=== PATIENT | female | born 1950 | race Caucasian/White ===

== ENCOUNTER 2020-11-01 15:21 | Emergency (ER) | payer MEDICARE, OTHER ==
--- NOTE | 2020-11-01 17:08 | EDM.PDOC ---
ED HPI GENERAL MEDICAL PROBLEM - General Chief Complaint: Gastrointestinal Problem Stated Complaint: RECTACL BLEEDING Time Seen by Provider: 11/01/20 16:49 Source of Information: Reports: Patient, RN Notes Reviewed History Limitations: Reports: No Limitations - History of Present Illness INITIAL COMMENTS - FREE TEXT/NARRATIVE: 70-year-old female presents emergency department today with bright red blood per rectum she does have a loose stool while in the emergency department which is consistent with bright red blood, she has no other symptomology she did have a hard stool a couple days ago she is traveling from out of [facility]. Colonoscopy 2 years ago with 1 polyp removed Abdominal Pain Score (Numeric/FACES): 4 - Related Data Allergies Allergy/AdvReac Type Severity Reaction Status Date / Time Sulfa (Sulfonamide Allergy Rash Verified 11/01/20 16:39 Antibiotics) Home Meds: Home Meds Calcium Carbonate [Calcium] 500 mg PO BID 11/01/20 [History] Cholecalciferol (Vitamin D3) [Vitamin D] 1 tab PO DAILY 11/01/20 [History] L.acidoph,Paracasei, B.lactis [Probiotic] 1 each PO TID 11/01/20 [History] Losartan [Cozaar] 100 mg PO DAILY 11/01/20 [History] Lutein/Min/Vit C/Vit E Acetate [Ocuvite Lutein] 1 tab PO DAILY 11/01/20 [History] Magnesium 250 mg PO DAILY 11/01/20 [History] Past Medical History HEENT History: Reports: Impaired Vision Cardiovascular History: Reports: Hypertension - Past Surgical History GI Surgical History: Reports: Small Bowel Female Surgical History: Reports: D&C, Hysterectomy Social & Family History - Tobacco Use Tobacco Use Status *Q: Never Tobacco User ED ROS GENERAL - Review of Systems Review Of Systems: See Below Constitutional: Reports: No Symptoms Respiratory: Reports: No Symptoms Cardiovascular: Reports: No Symptoms GI/Abdominal: Reports: Bloody Stool ED EXAM, GI/ABD - Physical Exam Exam: See Below Exam Limited By: No Limitations General Appearance: Alert, WD/WN, No Apparent Distress Respiratory/Chest: No Respiratory Distress GI/Abdominal Exam: Soft, Non-Tender Rectal (Female) Exam: Normal Exam, Hemorrhoids. No: Bloody Stool, Rectal Fissure, Tenderness Course - Vital Signs Last Recorded V/S: Last Vital Signs Temp 97.0 F 11/01/20 16:47 Pulse 56 L 11/01/20 16:47 Resp 16 11/01/20 16:47 BP 165/75 H 11/01/20 16:47 Pulse Ox 100 11/01/20 16:47 - Orders/Labs/Meds Labs: Laboratory Tests 11/01/20 Range/Units 17:21 Hgb 12.7 (12.0-15.0) g/dL Departure - Departure Time of Disposition: 18:16 Disposition: Home, Self-Care 01 Condition: Fair Clinical Impression: Blood per rectum - Discharge Information Instructions: Rectal Bleeding, [id number] Referrals: ANNE CASTRO MD [Other] Forms: ED Department Discharge Additional Instructions: Please report for your colonoscopy on call return to the emergency department worsening of symptoms Sepsis Event Note (ED) - Evaluation Sepsis Screening Result: No Definite Risk - Focused Exam Vital Signs: Vital Signs Temp Pulse Resp BP Pulse Ox 11/01/20 16:47 97.0 F 56 L 16 165/75 H 100 11/01/20 16:33 97.0 F 56 L 16 165/75 H 100 - Assessment/Plan Plan: Assessment Acuity = acute Site and laterality = bright red blood per rectum Etiology = unknown Manifestations = none Location of injury = Home Lab values = hemoglobin 12.7 Plan Call discussed case with Dr. Sweet at 1800 he agreed plan for colonoscopy in 2 days charge nurse is setting up her with the prep at this time which she will do tomorrow. This note was dictated using [employer] voice recognition software please call with any questions on syntax or grammar.
== END 2020-11-01 18:41 | disposition home or self-care (01) ==
LOC: JP.ED 15:21
DX: K62.5 Hemorrhage of anus and rectum (principal); I10 Essential (primary) hypertension; Z88.2 Allergy status to sulfonamides; Z79.899 Other long term (current) drug therapy
CPT/HCPCS: 36415; 85018; 99283

== ENCOUNTER 2020-11-03 06:58 | Day surgery (SDC) | payer MEDICARE, OTHER ==
[2020-11-03] MEDS ORDERED: Dextrose 5%-Lactated Ringers 1,000 ML IV SCH (08:00)
[2020-11-03] MEDS ORDERED: Midazolam 1 MG/ML 2 ML SDV ONE (09:02)
[2020-11-03] MEDS ORDERED: Propofol 200 MG/20 ML SDV ONE (09:02)
[2020-11-03] MEDS ORDERED: fentaNYL 100 MCG/2 ML SDV ONE (09:02)
--- NOTE | 2020-11-09 16:28 | OR ---
DATE OF PROCEDURE: 11/03/2020 SURGEON: Edmar Sweet MD PREOPERATIVE DIAGNOSIS: Recent episodes of blood per rectum. POSTOPERATIVE DIAGNOSIS: Diffuse colitis with rectal sparing. PROCEDURE PERFORMED: Flexible colonoscopy with: 1. Multiple colonic biopsies ([id number]). 2. Collection of stool for microbiologic workup ([id number]). ANESTHESIA: IV sedation. INDICATION FOR PROCEDURE: A 70-year-old female presenting with some rectal bleeding. The plan is to proceed with a colonoscopy with biopsies and/or polypectomy as indicated. Potential risks including bleeding and perforation were discussed, and the patient wishes to proceed. DETAILS OF PROCEDURE: The patient was taken to the operating room and placed in a left lateral decubitus position. IV sedation was administered after which the initial digital rectal exam was performed and was unremarkable. No blood or bleeding was initially seen. As one passed into the rectum, retroflexion revealed uncomplicated hemorrhoidal columns. At more or less the junction of the rectum and sigmoid colon, there began a reddened area of the colonic mucosa. This became very intense as one progressed into the descending colon, splenic flexure, and distal transverse colon. As one passed more proximally in the transverse colon and into the right colon, the redness became quite a bit less. In the areas of intense inflammation, there was purulent material on the surface of the colon and some scattered ulcerations present. Multiple biopsies were obtained from the inflamed portions of the colon, and minimal bleeding from the biopsy sites was seen. The scant amount of stool present was evacuated and sent for microbiologic workup as well. At this point, the scope was then withdrawn and the above findings reconfirmed. Overall, the prep in this case was quite good. There was no active bleeding at the time of the endoscopy. At this point, the patient will be set up to see Internal Medicine next Saturday and has been instructed to follow up with her personal physician back in [place] when she gets back there which sounds like would be the last week of October. We will forward the pathology report, this operative report, and microbiologic workup to the patient to facilitate followup. Edmar Sweet MD /[id number]
== END 2020-11-03 11:22 | disposition home or self-care (01) ==
LOC: JP.SDS 06:58
PROVIDERS: ATTEND Surgery
DX: K52.9 Noninfective gastroenteritis and colitis, unspecified (principal); K63.3 Ulcer of intestine; K64.9 Unspecified hemorrhoids; I10 Essential (primary) hypertension; K21.9 Gastro-esophageal reflux disease without esophagitis; Z88.2 Allergy status to sulfonamides
CPT/HCPCS: 45380; 87046; 87077; 87493; 87899; 88305; 89055; J2250; J2704; J3010; J7121